=== PATIENT | female | born 1955 | race Caucasian/White ===

== ENCOUNTER → 2020-02-28 10:24 | Outpatient (CLI) | payer BC, SELFPAY ==
--- NOTE | ~2020-02-28 | MM_ITS ---
EXAMINATION: MM screening yasmeen BI w oliverio HISTORY: Screening TECHNIQUE: Craniocaudal and mediolateral oblique 3-D tomosynthesis images were obtained and synthetic 2-D images were generated. CAD analysis was submitted and interpreted. COMPARISON: No prior mammogram is available for comparison at this institution. BREAST PARENCHYMAL COMPOSITION: There are scattered areas of fibroglandular density. FINDINGS: There are bilateral breast asymmetries and calcifications in the subareolar location of the right breast and centered in the outer aspect the left breast. IMPRESSION: 1. Bilateral breast asymmetries with calcifications. 2. Additional mammographic views and possible breast ultrasound are recommended. BI-RADS Category 0: Incomplete: Needs additional imaging evaluation. Reviewed, dictated and finalized at location A. IMPRESSION: 1. Bilateral breast asymmetries with calcifications. 2. Additional mammographic views and possible breast ultrasound are recommended . BI-RADS Category 0: Incomplete: Needs additional imaging evaluation.
== END ==
PROVIDERS: PCP Family Medicine; Visit Provider Family Medicine
DX: Z12.31 Encounter for screening mammogram for malignant neoplasm of breast (principal)
CPT/HCPCS: 77063; 77067

== ENCOUNTER 2020-03-01 13:02 | Emergency (ER) | payer BC, SELFPAY ==
[2020-03-01 13:02] VITALS: BP 141/85; PULSE 70; RESP 16; TEMP 37.2; O2SAT 98
[2020-03-01] MEDS: TETANUS,DIPHTHERIA,AC PERTUSSIS ADULT (0.5 ML) BOOSTRIX IM (13:24)
--- NOTE | 2020-03-01 13:38 | ED.WOUNDLAC ---
HPI - Wound/Laceration General Chief Complaint: Wound/Laceration Stated Complaint: Laceration on finger Time Seen by Provider: 03/01/20 13:17 Source: patient and RN notes reviewed Mode of arrival: ambulatory Limitations: no limitations History of Present Illness HPI narrative: Patient presents today with a laceration to her right third finger. She sustained 30 minutes prior to arrival while using a mandolin slicer at home. She was not wearing a protective glove or using the guard. Reports minimal pain. Denies numbness or tingling in the finger. States she cannot get it to stop bleeding. Unsure of the date of her last tetanus vaccine. Related Data Home Medications Medication Instructions Recorded Confirmed levothyroxine [Synthroid] 75 mcg PO DAILY 03/01/20 03/01/20 lisinopril [Zestril] 10 mg PO DAILY 03/01/20 03/01/20 omeprazole [Prilosec] 10 mg PO DAILY 03/01/20 03/01/20 Allergies Allergy/AdvReac Type Severity Reaction Status Date / Time No Known Allergies Allergy Verified 03/01/20 13:18 Review of Systems Review of Systems: Narrative: CONSTITUTIONAL: Denies body aches, fever, chills, or sweats. EYES: Denies visual changes, redness, or discharge. ENT: Denies rhinorrhea, congestion, sore throat, or otalgia. CARDIOVASCULAR: Denies chest pain, palpitations, or edema. RESPIRATORY: Denies cough or dyspnea. GASTROINTESTINAL: Denies abdominal pain, nausea, vomiting, or diarrhea. GENITOURINARY: Denies dysuria or hematuria. SKIN: Denies rash, itching. + Finger laceration MUSCULOSKELETAL: Denies back pain, joint pain, or myalgia. NEUROLOGIC: Denies headache, numbness, tingling, or weakness. PSYCH: Denies depression or anxiety. [facility] Past Medical History Medical History Essential (primary) hypertension GERD (gastroesophageal reflux disease) Hypothyroidism Osteoarthritis Scoliosis Surgical History Surgical History Status post trigger finger release Tubal ligation status Family History Family History Father Family history of lung cancer, Onset Age: 58 Mother Family history of congestive heart failure, Onset Age: 76 Other Family history of cardiovascular disease No family history of hypertension No family history of malignant neoplasm Social History Social History Social History: The patient is and lives with her in [place]. She designates her , Jovani, as her surrogate decision maker and she wishes to be a full code. She denies alcohol, tobacco, and drug use. She is retired. Smoking status: Never smoker Alcohol intake: never Substance use: never Gender identity (if verbalized by the patient): Female Spiritual care concerns: No Agree to blood products: Yes Exam Narrative: Exam Narrative: GENERAL: Well-appearing, well-nourished, and in no acute distress. HEAD: Normocephalic, atraumatic. EYES: EOMI. No redness or drainage. Conjunctivae normal. ENT: Mucous membranes pink and moist. NECK: Normal AROM. CHEST: No respiratory distress. EXTREMITIES: Normal range of motion. No edema. SKIN: Warm, dry, no rash. Capillary refill normal. Normal skin turgor. 1.5 x 0.5 partial-thickness skin avulsion from the dorsum of the right third DIP. Mild active bleeding. Distal sensation intact. Capillary refill normal. Full range of motion. NEURO: No focal deficits. Alert and oriented x3. Gait steady. PSYCH: Normal affect. No signs of depression or anxiety. Course Vital Signs Vital signs: Vital Signs Temperature 98.9 F 03/01/20 13:02 Pulse Rate 70 03/01/20 13:02 Respiratory Rate 16 03/01/20 13:02 Blood Pressure 141/85 H 03/01/20 13:02 Pulse Oximetry 98 03/01/20 13:02 Temperatu
== END 2020-03-01 13:47 | disposition home or self-care (01) ==
PROVIDERS: Emergency Provider Nurse Practitioner; PCP Family Medicine
DX: S61.202A Unspecified open wound of right middle finger without damage to nail, initial encounter (principal); W27.8XXA Contact with other nonpowered hand tool, initial encounter; Z23 Encounter for immunization; I10 Essential (primary) hypertension; K21.9 Gastro-esophageal reflux disease without esophagitis; E03.9 Hypothyroidism, unspecified; M19.90 Unspecified osteoarthritis, unspecified site
CPT/HCPCS: 90471; 90715; 99212; G0463

== ENCOUNTER 2020-04-08 06:57 | Outpatient (NON) | payer BC, SELFPAY ==
[2020-04-08 23:36] LABS: SARS-CoV-2 RNA PCR Positive
== END 2020-04-08 06:58 ==
LOC: ANHCOVIDDT 06:57
PROVIDERS: PCP Family Medicine; Visit Provider Physician Assistant
DX: U07.1 COVID-19 (principal)
CPT/HCPCS: 87635; C9803; U0003

== ENCOUNTER 2021-02-23 11:29 | Outpatient (CLI) | payer MEDICARE, SELFPAY ==
--- NOTE | ~2021-02-23 | XR_ITS ---
EXAMINATION: XR knee RT 3V DATE: 02/23/2021 11:53 INDICATION: Right knee pain. TECHNIQUE: 3 views of right knee were obtained. COMPARISON: None. FINDINGS: There is lateral subluxation of patella. No fracture. There is mild osteoarthritis of media l and lateral compartments and moderate osteoarthritis of patellofemoral compartment. No knee joint e ffusion. There is a 3 mm loose body in the intercondylar notch. IMPRESSION: 1. Moderate right knee osteoarthritis. 2. Right knee joint loose body. Reviewed, dictated and finalized at location A.
--- NOTE | ~2021-02-23 | XR_ITS ---
EXAMINATION: XR hip RT min 2V DATE: 02/23/2021 11:53 INDICATION: Right hip pain. TECHNIQUE: 2 views of right hip were obtained. COMPARISON: Pelvis radiograph 05/31/2019 FINDINGS: Bone alignment is normal. No fracture. Right hip joint space is normal. IMPRESSION: 1. Normal right hip. Reviewed, dictated and finalized at location A. IMPRESSION: 1. Normal right hip.
== END 2021-02-23 11:30 | disposition home or self-care (01) ==
LOC: ANHIMG 11:35
PROVIDERS: PCP Family Medicine; Visit Provider Family Medicine
DX: M25.559 Pain in unspecified hip (principal); M25.569 Pain in unspecified knee; M17.11 Unilateral primary osteoarthritis, right knee; M23.41 Loose body in knee, right knee
CPT/HCPCS: 73502; 73562

== ENCOUNTER 2021-04-03 15:09 | Outpatient (CLI) | payer MEDICARE, SELFPAY ==
--- NOTE | ~2021-04-03 | MM_ITS ---
EXAMINATION: MM screening yasmeen BI w oliverio HISTORY: Screening mammogram TECHNIQUE: Craniocaudal and mediolateral oblique 3-D tomosynthesis images were obtained and synthetic 2-D images were generated. CAD analysis was submitted and interpreted. COMPARISON: 02/28/2020, 06/02/2018 BREAST PARENCHYMAL COMPOSITION: There are scattered areas of fibroglandular density. FINDINGS: There is an unchanged asymmetry in the middle third outer left breast on the craniocaudal v iew. There is no evidence of suspicious mass, calcification, or architectural distortion to suggest m alignancy in either breast. There has been no suspicious interval change. IMPRESSION: 1. No mammographic evidence of malignancy. 2. Recommend routine screening mammography in one year. BI-RADS Category 2: Benign finding(s). Reviewed, dictated and finalized at location A. 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
== END 2021-04-03 15:10 | disposition home or self-care (01) ==
LOC: ANHIMG 15:11
PROVIDERS: PCP Family Medicine; Visit Provider Family Medicine
DX: Z12.31 Encounter for screening mammogram for malignant neoplasm of breast (principal)
CPT/HCPCS: 77063; 77067

== ENCOUNTER → 2021-06-12 14:30 | Outpatient (CLI) | payer OTHER, SELFPAY ==
--- NOTE | ~2021-06-12 | XR_ITS ---
XR shoulder RT min 2V 06/12/2021 14:53 INDICATION: Right shoulder pain PROCEDURE: 4 views of the right shoulder COMPARISON: No prior studies for comparison. FINDINGS: Fracture, dislocation or subluxation is not identified. Mild osteoarthritis of the acromioc lavicular joint. The soft tissues appear within normal limits. No foreign bodies are identified. IMPRESSION: 1: Mild osteoarthritis of the right acromioclavicular joint. Reviewed, dictated and finalized at location B. 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
== END ==
PROVIDERS: PCP Family Medicine; Visit Provider Family Medicine
DX: M19.011 Primary osteoarthritis, right shoulder (principal)
CPT/HCPCS: 73030

== ENCOUNTER 2022-01-30 07:56 | Outpatient (CLI) | payer OTHER, SELFPAY ==
--- NOTE | ~2022-01-30 | DEXA_ITS ---
Bone Density Report Name: CHANTAL MARTIN Age: 66 Sex: Female Ethnicity: White Date of : 1955 Indication: postmenopausal; screening for osteoporosis; height loss; Referring Provider: SHARON CTAES Study: Bone densitometry was performed. Exam Date: January 30, 2022 Accession number: [id number] Bone Density: Region BMD T-score Z-score Classification AP Spine(L1, L4) 0.972 -0.6 1.3 Normal Femoral Neck (Right) 0.820 -0.3 1.3 Normal Total Hip (Right) 0.962 0.2 1.5 Normal World Health Organization criteria for BMD impression classify patients as: Normal (T-score at or above -1.0), Osteopenia (T-score between -1.0 and -2.5), or Osteoporosis (T-score at or below -2.5). 10-year Fracture Risk: FRAX not reported because: All T-scores for Spine Total, Hip Total, Femoral Neck at or above -1.0 Clinical Information Provided by Patient: Patient maximum height was 68 Menopause Age: 52 Drinks caffeinated beverages Onset of menses at age 15 Number of children 2 Impression: The patient has normal bone mass. Discussion: BONE DENSITY IS ABOVE THE MINIMUM DESIRABLE LEVEL AT ALL SKELETAL SITES TESTED. This patient?s bone mineral density is above the minimum desirable level (T-score -1.0 or better) at all sites measured. The patient should follow a healthful lifestyle (good nutrition with adequate calcium and vitamin D, and appropriate weight-bearing exercise). Follow-Up: Consider repeating this study in 5 years or sooner if there is some new clinical indication. Reported by: ANGELIKA on 01/30/2022 8:24:00 AM. Reviewed, dictated and finalized at location Sara LAURENT
== END 2022-01-30 07:57 | disposition home or self-care (01) ==
PROVIDERS: PCP Family Medicine; Visit Provider Family Medicine
DX: Z78.0 Asymptomatic menopausal state (principal)
CPT/HCPCS: 77080

== ENCOUNTER → 2022-05-30 13:23 | Outpatient (CLI) | payer OTHER, SELFPAY ==
--- NOTE | ~2022-05-30 | MM_ITS ---
EXAMINATION: MM screening yamseen BI w oliverio HISTORY: Screening TECHNIQUE: Craniocaudal and mediolateral oblique 3-D tomosynthesis images were obtained and synthetic 2-D images were generated. CAD analysis was submitted and interpreted. COMPARISON: Comparison to multiple prior studies sequentially, with oldest reviewed study dated 05/2014. BREAST PARENCHYMAL COMPOSITION: There are scattered areas of fibroglandular density. FINDINGS: There are developing asymmetries in the periareolar location of the right breast. The left breast is stable without evidence for malignancy. IMPRESSION: 1. Developing right breast asymmetries. 2. Additional mammographic views and possible breast ultrasound are recommended. BI-RADS Category 0: Incomplete: Needs additional imaging evaluation. Reviewed, dictated and finalized at location A. CATCHER IMPRESSION: 1. Developing right breast asymmetries. 2. Additional mammographic views and possible breast ultrasound are recommended . BI-RADS Category 0: Incomplete: Needs additional imaging evaluation.
== END ==
PROVIDERS: PCP Family Medicine; Visit Provider Family Medicine
DX: Z12.31 Encounter for screening mammogram for malignant neoplasm of breast (principal); N64.89 Other specified disorders of breast
CPT/HCPCS: 77063; 77067

== ENCOUNTER → 2022-06-19 11:26 | Outpatient (CLI) | payer OTHER, SELFPAY ==
--- NOTE | ~2022-06-19 | MMUS_ITS ---
EXAMINATION: MM diagnostic yasmeen RT w oliverio, US breast RT limited HISTORY: Follow-up right breast asymmetries TECHNIQUE: Additional 3-D tomosynthesis images of the right breast were performed and synthetic 2-D i mages were generated. CAD analysis was submitted and interpreted. High resolution Limited right breas t ultrasound was performed. COMPARISON: Comparison to multiple prior studies sequentially, with oldest reviewed study dated 02/16. BREAST PARENCHYMAL COMPOSITION: Breast composed of scattered areas of fibroglandular density FINDINGS: MAMMOGRAPHIC FINDINGS: Focal asymmetry in the lower inner quadrant of the right breast anteriorly is minimally increased in prominence compared with prior study. No suspicious calcifications or architectural distortion. ULTRASOUND: Limited right breast ultrasound: Normal heterogeneous echotexture in the periareolar location. No dis crete mass identified. IMPRESSION: 1. Probable benign asymmetry of the right breast without sonographic correlate. 2. Recommend 6 month follow-up diagnostic right mammogram BI-RADS category 3, probably benign findings. Reviewed, dictated and finalized at location A. 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 Probable benign asymmetry of the right breast without sonographic correlate. 2. Recommend 6 month follow-up diagnostic right mammogram BI-RADS category 3, probably benign findings.
== END ==
PROVIDERS: PCP Nurse Practitioner; Visit Provider Nurse Practitioner
DX: R92.8 Other abnormal and inconclusive findings on diagnostic imaging of breast (principal)
CPT/HCPCS: 76642; 77061; 77065; G0279

== ENCOUNTER 2022-07-24 07:31 | Outpatient (CLI) | payer OTHER, SELFPAY ==
--- NOTE | 2022-07-24 07:40 | ECHO_ITS ---
Patient Info Name: Dee Thomas Age: 67 years : 1955 Gender: Female Ht: 67 in Wt: 185 lbs BSA: 2.01 m2 HR: 56 bpm BP: 120 / 79 mmHg Technical Quality: Good Exam Date: 07/24/2022 8:02 AM Exam Location: [facility] Pulmonary Patient Status: Outpatient Admit Date: 07/24/2022 Staff Ordering Physician: William Moura DO Machine Operator Assistant: Juma Simmons RDCS, RT Attending Provider: William Moura DO Referring Physician: Martell PARKER; Exam Type: CA echo doppler color flow Study Info Indications R06.00 - Dyspnea, unspecified Complete two-dimensional, color flow and Doppler transthoracic echocardiogram is performed. Strain analysis performed. Summary 1. Complete two-dimensional, color flow and Doppler transthoracic echocardiogram is performed. 2. Left ventricular chamber dimension is mildly enlarged. 3. Left ventricular systolic function is normal, estimated at 60-65%. 4. The left ventricular diastolic function is normal. 5. E/e' 7 is not elevated. 6. Global longitudinal strain is normal at -22.9%. 7. There is mild aortic valve sclerosis. Left Ventricle E/e' 7 is not elevated. Global longitudinal strain is normal at -22.9%. Left ventricular chamber dimension is mildly enlarged. Left ventricular systolic function is normal, estimated at 60-65%. The left ventricular diastolic function is normal. Right Ventricle Right ventricular systolic function is normal and with normal TAPSE 2.4 cm. Right ventricular chamber dimension is normal. Left Atria Left atrial chamber dimension is normal. Right Atria Right atrial chamber dimension is normal. Aortic Valve The aortic valve is trileaflet. There is mild aortic valve sclerosis. There is no aortic valve stenosis. There is no aortic valve regurgitation. Pulmonic Valve There is no pulmonic regurgitation. Mitral Valve There is no mitral valve stenosis. There is no mitral valve regurgitation. Tricuspid Valve There is no tricuspid valve regurgitation. Pericardium/Pleural There is no pericardial effusion. Inferior Vena Cava Normal inferior vena cava with >50% collapse upon inspiration consistent with normal right atrial pressure, 5 mmHg. Aorta The aortic root size at the sinus of Valsalva is normal. Left Ventricular Outflow Tract Name Value Normal LVOT 2D LVOT Diameter 2.1 cm LVOT Doppler LVOT Peak Gradient 2 mmHg LVOT Mean Gradient 1 mmHg LVOT VTI 20 cm LVOT VTI/AV VTI Ratio 0.7 LVOT Stroke Volume 70 ml LVOT CO 4.0 l/min LVOT CI 2.0 l/min/m2 Mitral Valve Name Value Normal MV Doppler MV [place] 282 cm/s2 MV PHT
--- NOTE | 2022-07-24 07:45 | EST_ITS ---
Patient Info Name: Dee Thomas Age: 67 years : 1955 Gender: Female Ht: 67 in Wt: 187 lbs BSA: 2.03 m2 HR: 67 bpm BP: 140 / 72 mmHg Heart Rhythm: Sinus Arrhythmia Exam Date: 07/24/2022 8:42 AM Exam Location: [facility] Stress Patient Status: Outpatient Admit Date: 07/24/2022 Staff Ordering Physician: William Moura DO Attending Provider: William Moura DO Exercise Technologist: Jane Naylor CT Exercise Physician: William Moura DO Exam Type: CA stress test treadmill Study Info Indications R06.09 - Other forms of dyspnea A treadmill exercise stress test was performed. Summary 1. 1. Negative Alexis exercise stress test for ischemic ST changes by ECG criteria. 2. 2. Reduced functional capacity, achieving 7 METs of workload. 3. 3. Baseline hypertension. 4. 4. Appropriate HR response to exercise. 5. 5. Appropriate HR recovery at 1 minute post exercise. 6. 6. No imaging with stress testing. 7. 7. Patient informed of the above results. Protocol: Alexis Stress ECG Details Stage: REST Duration (min): 1 min : 2 sec Speed (mph): 0.0 Grade (%): 0 HR (bpm): 58 SBP (mmHg): 149 DBP (mmHg): 72 METS: --- Stage: REST Duration (min): 13 min : 38 sec Speed (mph): 0.0 Grade (%): 0 HR (bpm): 63 SBP (mmHg): 149 DBP (mmHg): 72 METS: --- Stage: STAGE 1 Duration (min): 1 min : 0 sec Speed (mph): 1.7 Grade (%): 10 HR (bpm): 100 SBP (mmHg): 149 DBP (mmHg): 72 METS: --- Stage: STAGE 1 Duration (min): 2 min : 0 sec Speed (mph): 1.7 Grade (%): 10 HR (bpm): 113 SBP (mmHg): 149 DBP (mmHg): 72 METS: --- Stage: STAGE 1 Duration (min): 3 min : 0 sec Speed (mph): 1.7 Grade (%): 10 HR (bpm): 123 SBP (mmHg): 181 DBP (mmHg): 83 METS: --- Stage: STAGE 2 Duration (min): 1 min : 0 sec Speed (mph): 2.5 Grade (%): 12 HR (bpm): 135 SBP (mmHg): 181 DBP (mmHg): 83 METS: --- Stage: STAGE 2 Duration (min): 2 min : 0 sec Speed (mph): 2.5 Grade (%): 12 HR (bpm): 142 SBP (mmHg): 169 DBP (mmHg): 83 METS: --- Stage: STAGE 2 Duration (min): 2 min : 0 sec Speed (mph): 2.5 Grade (%): 12 HR (bpm): 142 SBP (mmHg): 169 DBP (mmHg): 83 METS: --- Stage: RECOVERY Duration (min): 0 min : 59 sec Speed (mph): 0.0 Grade (%): 0 HR (bpm): 111 SBP (mmHg): 169 DBP (mmHg): 83 METS: --- Stage: RECOVERY Duration (min): 1 min : 59 sec Speed (mph): 0.0 Grade (%): 0 HR (bpm): 87 SBP (mmHg): 169 DBP (mmHg): 83 METS: --- Stage: RECOVERY Duration (min): 2 min : 38 sec Speed (mph): 0.0 Grade (%): 0 HR (bpm): 80 SBP (mmHg): 185 DBP (mmHg): 82 METS: --- Rest HR: 63 bpm Peak HR: 142 bpm Rest Sys BP: 149 mmHg Peak Sys BP: 185 mmHg Max Pred HR: 153 bpm % Max Pred HR: 93 % Target HR: 130 bpm Max RPP: 26,270 bpm*mmHg D
== END 2022-07-24 07:32 | disposition home or self-care (01) ==
PROVIDERS: PCP Family Medicine; Visit Provider Internal Medicine Cardiovascular Disease
DX: R06.09 Other forms of dyspnea (principal); R07.9 Chest pain, unspecified
CPT/HCPCS: 93017; 93306

== ENCOUNTER → 2022-11-22 10:42 | Outpatient (CLI) | payer OTHER, SELFPAY ==
--- NOTE | ~2022-11-22 | XR_ITS ---
Left foot Technique: AP, oblique, and lateral views were obtained. Clinical History: Pain Findings: No acute fracture or dislocation is seen. Osseous alignment is anatomic. There is mild dege nerative change of the second, third, and fourth tarsometatarsal joints. Soft tissues are unremarkabl e. Impression: Mild midfoot degenerative changes, as above. Reviewed, dictated and finalized at location . Impression: Mild midfoot degenerative changes, as above.
== END ==
PROVIDERS: PCP Family Medicine; Visit Provider Family Medicine
DX: M79.672 Pain in left foot (principal)
CPT/HCPCS: 73630

== ENCOUNTER → 2023-01-15 11:40 | Outpatient (CLI) | payer OTHER, SELFPAY ==
--- NOTE | ~2023-01-15 | MMUS_ITS ---
EXAMINATION: MM diagnostic yasmeen RT w oliverio, US breast RT limited HISTORY: Six-month follow-up for probably benign subareolar focal asymmetry of the right breast. TECHNIQUE: Craniocaudal, mediolateral, and mediolateral oblique 3-D tomosynthesis images of the right breast were performed and synthetic 2-D images were generated. CAD analysis was submitted and interp reted. High resolution limited right breast ultrasound was performed. COMPARISON: 06/19/2022, 05/30/2022, 04/03/2021 BREAST PARENCHYMAL COMPOSITION: There are scattered areas of fibroglandular density. FINDINGS: MAMMOGRAPHIC FINDINGS: No suspicious mass, calcification, or architectural distortion are identified to suggest malignancy. There has been no suspicious interval change. ULTRASOUND: There is dense tissue in the subareolar aspect of the right breast without discrete mass identified. IMPRESSION: 1. Dense tissue in the subareolar aspect of the right breast without discrete mass identified. 2. Recommend 6 month follow-up diagnostic mammogram and right breast ultrasound. BI-RADS category 3, probably benign findings. Reviewed, dictated and finalized at location L. IMPRESSION: 1. Dense tissue in the subareolar aspect of the right breast without discrete m ass identified. 2. Recommend 6 month follow-up diagnostic mammogram and right breast ultrasound . BI-RADS category 3, probably benign findings.
== END ==
PROVIDERS: PCP Family Medicine; Visit Provider Nurse Practitioner
DX: R92.8 Other abnormal and inconclusive findings on diagnostic imaging of breast (principal)
CPT/HCPCS: 76642; 77061; 77065; G0279

== ENCOUNTER 2023-09-29 09:20 | Outpatient (CLI) | payer OTHER, SELFPAY ==
--- NOTE | ~2023-09-29 | MM_ITS ---
EXAMINATION: MM diagnostic yasmeen BI w oliverio HISTORY: Six-month follow-up for probable benign subareolar asymmetry of right breast, 12 month scree karena of left breast TECHNIQUE: ML, MLO and CC 3-D tomosynthesis images of both breasts were performed and synthetic 2-D i mages were generated. CAD analysis was submitted and interpreted. COMPARISON: 01/15/2023 diagnostic right mammogram and Limited right breast ultrasound 06/19/2022 diagnostic right mammogram and Limited right breast ultrasound 05/30/2022, 04/03/2021, 02/28/2020 bilateral screening mammogram examinations BREAST PARENCHYMAL COMPOSITION: There are scattered areas of fibroglandular density. FINDINGS: No suspicious mass or architectural distortion, malignant calcification, skin thickening or retraction or significant new or developing density is detected. IMPRESSION: 1. No mammographic evidence of malignancy 2. Routine mammographic screening is recommended BI-RADS Category 1: Negative Reviewed, dictated and finalized at location A.
== END 2023-09-29 09:21 ==
LOC: MICIMG 09:21
PROVIDERS: PCP Family Medicine; Visit Provider Nurse Practitioner
DX: R92.8 Other abnormal and inconclusive findings on diagnostic imaging of breast (principal)
CPT/HCPCS: 77062; 77066; G0279

== ENCOUNTER 2023-11-14 10:47 | Outpatient (CLI) | payer OTHER, SELFPAY ==
--- NOTE | ~2023-11-14 | XR_ITS ---
Clinical Indication: Cough PA and lateral views of the chest: Comparison: 05/13/2019 Findings: The lungs are clear, without evidence of focal consolidation or pleural effusion. Cardiome diastinal silhouette is within normal limits. Bones and soft tissues are unremarkable. Impression: Normal chest. Reviewed, dictated and finalized at [facility]. Impression: Normal chest.
== END 2023-11-14 10:48 ==
LOC: GOSHIMG 10:49
PROVIDERS: PCP Family Medicine; Visit Provider Family Medicine
DX: R05.9 Cough, unspecified (principal)
CPT/HCPCS: 71046

== ENCOUNTER 2024-03-17 12:44 | Outpatient (CLI) | payer OTHER, SELFPAY ==
--- NOTE | ~2024-03-17 | MR_ITS ---
EXAMINATION: MR shoulder RT wo con DATE: 03/17/2024 13:29 INDICATION: Right shoulder pain TECHNIQUE: Magnetic resonance imaging (MRI) of the right shoulder was performed without intravenous c ontrast. Sequences included axial PD-weighted FS FSE, coronal oblique PD-weighted FS FSE, coronal obl ique T2-weighted FS FSE, sagittal PD-weighted FS FSE, and sagittal T1-weighted SE. COMPARISON: None. FINDINGS: Coracoacromial arch: The acromion undersurface is minimally curved in morphology (type I-II). The coracoacromial ligament is normal. Mild acromioclavicular osteoarthritis. Rotator cuff: Moderate supraspinatus tendinopathy with small full-thickness tear along the superior facet footplate which measures 4 mm AP and 7 mm medial collateral. There is partial thickness articular sided tear e xtending a few millimeter more posteriorly along the superior facet footplate involving up to 50% of the tendon thickness. The articular sided tear margin is retracted up to 2 cm medially. Mild infraspi natus tendinopathy without discrete tear. The teres minor tendon is normal. The moderate subscapulari s tendinopathy without discrete tear. Normal rotator cuff muscle bulk and signal. Biceps tendon, glenoid labrum and glenohumeral cartilage: There is mild tendinopathy with longitudinal split tear tearing along the extra articular portion of the tendon. Small partial-thickness tear at the chondral labral junction of the head o'clock-9:00 pos ition of the posterior glenoid labrum. Additional small tear at the 10:30 position of the posterior s uperior glenoid labrum. Glenohumeral cartilage is relatively preserved. Fluid: Small glenohumeral joint effusion hemodynamic primarily in the axillary and deep subscapular recesses . Small amount of fluid extends into the long head biceps tendon sheath. There is also a small to mod erate amount of fluid in the subacromial/subdeltoid bursa likely representing decompressed joint flui d extending through the full-thickness supraspinatus tendon tear. No loose osteochondral bodies. Bones: Normal marrow signal with no edema, fracture or pathologic marrow replacing process. Mild cystic and hypertrophic change along the lesser tuberosity likely related to chronic subscapular tendon disease. IMPRESSION: 1. Moderate supraspinatus tendinopathy with small full-thickness tear along the superior facet footpl ate. 2. Moderate subscapularis and mild infraspinatus tendinopathy without discrete tears. 3. Mild tendinopathy and longitudinal split tearing of the intra-articular long head biceps tendon. 4. Small tears at the posterior superior and posterior glenoid labrum. 5. Small right glenohumeral effusion extending into the recess of the joint space, the long head nisa ps tendon sheath and through the full-thickness rotator cuff tear/subdeltoid bursa. Reviewed, dictated and finalized at location A. IMPRESSION: 1. Moderate supraspinatus tendinopathy with small full-thickness tear along the superior facet footplate. 2. Moderate subscapularis and mild infraspinatus tendinopathy without discrete tears. 3. Mild tendinopathy and longitudinal split tearing of the intra-articular long head biceps tendon. 4. Small tears at the posterior superior and posterior glenoid labrum. 5. Small right glenohumeral effusion extending into the recess of the joint spa ce, the long head biceps tendon sheath and through the full-thickness rotator c uff tear/subdeltoid bursa.
== END 2024-03-17 12:45 | disposition home or self-care (01) ==
LOC: MICIMG 12:44
PROVIDERS: PCP Family Medicine; Visit Provider Orthopaedic Surgery
DX: M25.411 Effusion, right shoulder (principal); S43.491A Other sprain of right shoulder joint, initial encounter; X58.XXXA Exposure to other specified factors, initial encounter
CPT/HCPCS: 73221

== ENCOUNTER 2024-09-14 12:46 | Outpatient (CLI) | payer OTHER, SELFPAY ==
--- NOTE | ~2024-09-14 | US_ITS ---
Pelvic ultrasound. Clinical History: Pelvic pain Technique: Realtime transabdominal and transvaginal scanning of the pelvis was performed. Color flow Doppler and Doppler spectral analysis were performed. Findings: The uterus is anteverted. The endometrial stripe has a thickness of 6 mm, and appears some what heterogeneous. Small amount of fluid present in the endometrial cavity. No focal mass is identif ied. Neither ovary seen. No adnexal mass seen. There is no evidence of free fluid in the cul de sac. Impression: Borderline thickened, heterogeneous endometrial stripe, with minimal fluid in the endometrial cavity. Consider endometrial hyperplasia versus possibly early endometrial neoplasm. Reviewed, dictated and finalized at location M. Impression: Borderline thickened, heterogeneous endometrial stripe, with minimal fluid in t he endometrial cavity. Consider endometrial hyperplasia versus possibly early e ndometrial neoplasm.
== END 2024-09-14 12:47 | disposition home or self-care (01) ==
LOC: MICIMG 12:46
PROVIDERS: PCP Obstetrics & Gynecology; Visit Provider Obstetrics & Gynecology
DX: R10.2 Pelvic and perineal pain (principal)
CPT/HCPCS: 76830; 76856

== ENCOUNTER 2024-12-02 14:07 | Outpatient (CLI) | payer OTHER, SELFPAY ==
--- OUTSIDE RECORDS SUMMARY | 2024-12-02 14:23 | XMS_ITS | Clinical Summary ---
Author Organization [facility] [address] Address [address] [place] [address] Care Team Providers Care Web Analyst Name Role Phone Jonathon Gonzales MD Primary Care Provider [phone] Allergies No known active allergies Social History Tobacco Use Types Packs/Day Years Used Date Smoking Tobacco: Never Assessed Personal Safety Answer Date Recorded Getting School Help Needed Not on file 08/02 Comments Unknown Sex and Gender Information Value Date Recorded Sex Assigned at Not on file Legal Sex Female 7:26 PM DIRECTOR SPECIALTY Gender Identity Not on file Sexual Orientation Not on file Plan of Treatment Not on file Insurance [facility] Care Teams Web Analyst Relationship Specialty Start Date End Date Jonathon Gonzales MD [address] [place] [address] PCP - General Family Medicine 05/24/19
--- OUTSIDE RECORDS SUMMARY | 2024-12-02 14:24 | XMS_ITS | Referral Summary ---
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
--- NOTE | 2024-12-02 14:31 | ECG_ITS ---
Test Date: 2024-12-02 14:53:52 Measurements Intervals [place] Rate: 62 P: 32 MO: 140 QRS: -23 QRSD: 108 T: 30 QT: 413 QTc: 420 Interpretive Statements SINUS RHYTHM LOW QRS VOLTAGE IN PRECORDIAL LEADS [QRS DEFLECTION < 1.0 mV IN CHEST LEADS] POSSIBLE ANTERIOR MYOCARDIAL INFARCTION [30 ms Q WAVE IN V3/V4, OR R < 0.2 mV IN V4], OF INDETERMINATE AGE WARNING: DATA QUALITY MAY AFFECT INTERPRETATION No previous ECG available for comparison Electronically Signed On 12-02-2024 15:03:12 CDT by Solitario Samuel M.D.
[2024-12-02 15:02] LABS: Hematocrit 36.5 % (37.0-47.0); Hemoglobin 11.9 g/dL (12.0-15.0); Mean Corpuscular HGB Conc 32.6 g/dl (32-36); Mean Corpuscular Hemoglobin 29.0 pg (26-34); Mean Corpuscular Volume 88.8 fl (80-100); Platelet Count Result 313 k/mm3 (150-375); Red Blood Count 4.11 M/mm3 (4.2-5.4); White Blood Count 7.7 K/mm3 (4.5-10.0)
[2024-12-02 15:17] LABS: Alanine Aminotransferase 18 U/L (6-35); Albumin Level 4.5 g/dL (3.5-5.1); Alkaline Phosphatase 63 U/L (38-126); Anion Gap 9 mmol/L (4-12); Aspartate Amino Transferase 29 U/L (14-36); Bilirubin,Total 0.3 mg/dL (0.2-1.3); Blood Urea Nitrogen 14 mg/dL (7-17); Calcium 9.7 mg/dL (8.4-10.2); Carbon Dioxide 27 mmol/L (22-30); Chloride 97 mmol/L (98-107); Estimated Glomerular Filt Rate 51; Glucose 112 mg/dL (65-110); Potassium 4.2 mmol/L (3.4-5.0); Sodium 133 mmol/L (137-145); Total Protein 7.5 g/dL (6.3-8.2)
[2024-12-02 15:19] LABS: INR 1.0; Prothrombin Time 12.9 Seconds (11.1-14.7)
[2024-12-02 15:20] LABS: Partial Thromboplastin Time 27.0 Seconds (22.3-36.8)
== END 2024-12-02 14:08 | disposition home or self-care (01) ==
LOC: ANHSURGERY 14:10
PROVIDERS: PCP Family Medicine; Visit Provider Urology
DX: R94.31 Abnormal electrocardiogram [ECG] [EKG] (principal); N81.2 Incomplete uterovaginal prolapse; E78.5 Hyperlipidemia, unspecified; I10 Essential (primary) hypertension
CPT/HCPCS: 36415; 80053; 85027; 85610; 85730; 86850; 86900; 86901; 93005

== ENCOUNTER 2024-12-13 01:25 | Day surgery (SDC) | payer OTHER, SELFPAY ==
[2024-12-02 14:22] VITALS: BP 135/68; PULSE 65; RESP 14; TEMP 37.1; O2SAT 99; BMI 29.5
--- NOTE | 2024-12-02 14:38 | PC.NURSE ---
Report to the Outpatient Waiting Room, entrance under the green pavilion located off [facility], at time __0600am on date ___12/13/24____. Planned Procedure Time: __0730am .? Time changes happen often and if your time is changed the preop area will call you the afternoon before. - You and your visitor will be asked to self-screen and do not enter if you have any COVID symptoms. Please call surgeon if you need to reschedule. - A mask is optional within the hospital at this time. Patients may have clear liquids (water, carbonated beverages, clear teas, apple juice) until 3 hours prior to surgery with a maximum of 20 ounces. - No food from midnight until time of surgery and no smoking, or chewing tobacco (or any form of nicotine). No chewing gum, candy or mints. (0430am) Take only the following medications with a SIP of water on the morning of surgery: ___Levothyroxine and Tylenol if needed DO NOT STOP ANY OF YOUR OTHER PRESCRIPTION MEDICATIONS PRIOR TO SURGERY EXCEPT THE FOLLOWING Hold all vitamins and supplements for 7 days per Gabriel Medications to discontinue per physician NO NSAIDS, ASPIRIN, Meloxicam for [address] Rios Date to take last dose 12/04/24 Please no make-up, nail yi, hairspray, perfume, deodorant, or body powder the day of surgery.? No jewelry (including any body piercings) or valuables the day of surgery, leave them at home.? Please take a shower or bath the night before, or the morning of, surgery with an antibacterial soap. (GOLD DIAL)? Wear comfortable, loose fitting clothing.? Bring overnight toiletries, robe, cell phone.,leading firefighter, tennis shoes - Jewelry must be removed prior to entering the operating room.? Rings and piercings that are not removed may be cut off. - The hospital will not accept responsibility for valuables.? - Please leave all valuables, including medications, at home the day of surgery. If you are going home after surgery, a licensed transportation driver must drive you home.? - NO public transportation without another adult if you receive anesthesia. - We recommend that an adult stay with you for 24 hours following discharge. - We also recommend that you do not drive, make important decision, drink alcoholic beverages, or take any drugs that were not prescribed by your health care provider for at least 24 hours after your discharge time. Follow any additional instructions given to you from your surgeon. Telephone instructions given to Patient and asked if any additional questions and then verbalized understanding. Patient advised to call surgeon office or pre surgery nurse liaison [phone] if any additional questions.
--- NOTE | 2024-12-12 17:42 | P.HP_ITS ---
H&P: HPI History of Present Illness Date/Time: 12/12/24 17:42 Chief Complaint: POP/RAYNA Narrative: Uterine prolapse +RAYNA Review of Systems Review of Systems: All systems reviewed & are unremarkable except as noted in HPI and below [facility] Past Medical History Medical History History of endometrial biopsy benign Arthritis of left hip hip replacement 2019 Scoliosis GERD (gastroesophageal reflux disease) Osteoarthritis Hypothyroidism Essential (primary) hypertension Surgical History Surgical History History of left hip replacement Status post trigger finger release Tubal ligation status Family History Family History Father Family history of lung cancer, Onset Age: 58 Mother Family history of congestive heart failure, Onset Age: 76 Hypertension Heart disease Cerebrovascular accident Grandparent Thyroid disorder Other Family history of cardiovascular disease No family history of hypertension Social History Social History Social History: The patient is and lives with her in [place]. She designates her , Jovani, as her surrogate decision maker and she wishes to be a full code. She denies alcohol, tobacco, and drug use. She is retired. Smoking status: Never smoker Second hand tobacco smoke exposure: Yes Alcohol intake: never Substance use: never Substance use type: does not use Current Housing: Decline to Answer Concerned About Future Housing: Decline to Answer Difficulty Paying Gas/Electric Bills: Decline to Answer Difficulty Paying for Meds: Decline to Answer Currently Unemployed: Decline to Answer Education: Decline to Answer Difficulty w/ Childcare or Family Care: Decline to Answer Living arrangements: with family Additional living arrangements comments: Occupation/Education: retired Gender identity (if verbalized by the patient): Female Sexual Orientation (if Verbalized by the Patient): Straight or Heterosexual Spiritual care concerns: No Agree to blood products: Yes Meds Home Medications and Allergies Home Medications ?Medication ?Instructions ?Recorded ?Confirmed ?Type levothyroxine 75 mcg tablet See Rx Instructions .Route 06/21/24 12/02/24 Rx .COMPLEX #90 tabs lisinopril 10 See Rx Instructions .Route 06/21/24 12/02/24 Rx mg-hydrochlorothiazide 12.5 mg .COMPLEX #90 tabs tablet meloxicam 15 mg tablet 15 mg PO DAILY #90 tabs 09/27/24 12/02/24 Rx simvastatin 10 mg tablet See Rx Instructions .Route 09/27/24 12/02/24 Rx .COMPLEX #90 tabs omeprazole 10 mg capsule,delayed 10 mg PO DAILY #90 caps 10/18/24 12/02/24 Rx release glucosamine-chondroitin 250 mg-200 2 tablet PO ONCE pain 12/02/24 12/02/24 History mg tablet magnesium 250 mg tablet 250 mg PO DAILY 12/02/24 12/02/24 History Allergies Allergy/AdvReac Type Severity Reaction Status Date / Time No Known Allergies Allergy Verified 12/02/24 14:18 Exam Narrative: + urethral mobility cystocele +3 [place] 0 Assessment and Plan Assessment and plan (1) Cystocele with incomplete uterovaginal prolapse: Code(s): N81.2 - Incomplete uterovaginal prolapse Status: Acute (2) RAYNA (stress urinary incontinence, female): Code(s): N39.3 - Stress incontinence (female) (male) Status: Acute Plan Robotic Sacral Colpopexy, Urethral sling
--- NOTE | 2024-12-12 20:37 | P.HP_ITS ---
H&P: HPI History of Present Illness Date/Time: 12/12/24 20:37 Chief Complaint: prolapse Narrative: Sandee is a 69yo postmenopausal P2012 who presents for surgical management of possible prolapse. She reports that it has been present for over a year. She reports that it has worsened; feeling more bulge symptoms. She does have some bladder issues; feels urgency, incomplete emptying sometimes. She does have to push it back in multiple times a day. She denies any vaginal bleeding. She has a h/o tubal ligation. She reports a normal h/o pap smears. She had a COMMERCIAL REPRESENTATIVE US showing mildly thickened endometrium with fluid; EMB was performed and negative for hyperplasia or malignancy. Review of Systems Constitutional: Constitutional: Denies chills, Denies fever(s) and Denies headache(s) Eyes: Eyes: Denies change in vision ENT: Denies dizziness and Denies headache(s) Cardiovascular: Cardiovascular: Denies chest pain and Denies dyspnea Respiratory: Respiratory: Denies cough and Denies dyspnea Gastrointestinal: Gastrointestinal: Denies abdominal pain and Denies change in stool character Genitourinary: Genitourinary: Denies abnormal vaginal bleeding, Denies pelvic pain, Reports prolapse symptoms, Denies vaginal discharge, Denies vaginal odor and Denies vaginal pruritus Neurologic: Denies dizziness and Denies headache(s) Psychiatric: Psychiatric: Denies anxiety and Denies depression [facility] Past Medical History Medical History History of endometrial biopsy benign Arthritis of left hip hip replacement 2019 Scoliosis GERD (gastroesophageal reflux disease) Osteoarthritis Hypothyroidism Essential (primary) hypertension Surgical History Surgical History History of left hip replacement Status post trigger finger release Tubal ligation status Family History Family History Father Family history of lung cancer, Onset Age: 58 Mother Family history of congestive heart failure, Onset Age: 76 Hypertension Heart disease Cerebrovascular accident Grandparent Thyroid disorder Other Family history of cardiovascular disease No family history of hypertension Social History Social History Social History: The patient is and lives with her in [place]. She designates her , Jovani, as her surrogate decision maker and she wishes to be a full code. She denies alcohol, tobacco, and drug use. She is retired. Smoking status: Never smoker Second hand tobacco smoke exposure: Yes Alcohol intake: never Substance use: never Substance use type: does not use Current Housing: Decline to Answer Concerned About Future Housing: Decline to Answer Difficulty Paying Gas/Electric Bills: Decline to Answer Difficulty Paying for Meds: Decline to Answer Currently Unemployed: Decline to Answer Education: Decline to Answer Difficulty w/ Childcare or Family Care: Decline to Answer Living arrangements: with family Additional living arrangements comments: Occupation/Education: retired Gender identity (if verbalized by the patient): Female Sexual Orientation (if Verbalized by the Patient): Straight or Heterosexual Spiritual care concerns: No Agree to blood products: Yes Meds Home Medications and Allergies Home Medications ?Medication ?Instructions ?Recorded ?Confirmed ?Type levothyroxine 75 mcg tablet See Rx Instructions .Route 06/21/24 12/02/24 Rx .COMPLEX #90 tabs lisinopril 10 See Rx Instructions .Route 06/21/24 12/02/24 Rx mg-hydrochlorothiazide 12.5 mg .COMPLEX #90 tabs tablet meloxicam 15 mg tablet 15 mg PO DAILY #90 tabs 09/27/24 12/02/24 Rx simvastatin 10 mg tablet See Rx Instructions .Route 09/27/24 12/02/24 Rx .COMPLEX #90 tabs omeprazole 10 mg capsule,delayed 10 mg PO DAILY #90 caps 10/18/24 12/02/24 Rx release glucosamine-chondroitin 250 mg-200 2 tablet PO ONCE pain 12/02/24 12/02/24 History mg tablet magnesium 250 mg tablet 250 mg PO DAILY 12/02/24 12/02/24 History Allergies Allergy/AdvReac Type Severity Reaction Status Date / Time No Known Allergies Allergy Verified 12/02/24 14:18 Exam Const: General: cooperative, comfortable, no acute distress and overweight Orientation/consciousness: patient oriented x3 Resp: Effort & Inspection: normal respiratory effort Cardio: Rate: regular rate GI: Inspection: normal to inspection GI Palp: No abdominal tenderness and Yes Soft to palpation : Other: deferred to OR Skin: General skin exam: normal color Neuro: General: patient oriented x3 Extrem: General: normal to inspection Psych: Appearance: grossly normal Affect: normal affect Attitude: cooperative Assessment and Plan Assessment and plan (1) Cystocele with incomplete uterovaginal prolapse: Code(s): N81.2 - Incomplete uterovaginal prolapse Status: Acute Plan - I will perform robotic assisted supracervical hysterectomy with bilateral salpingo-oophorectomy. - Risks and benefits and expected down time discussed in detail - Will be a combined case with Dr. Rios
[2024-12-13] VITALS (12 sets, daily range): BP systolic 105–131; BP diastolic 44–68; PULSE 55–84; RESP 12–18; TEMP 35.8–36.8; O2SAT 95–100; BMI 28.9
--- OUTSIDE RECORDS SUMMARY | 2024-12-13 01:29 | XMS_ITS | Clinical Summary ---
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
--- OUTSIDE RECORDS SUMMARY | 2024-12-13 01:29 | XMS_ITS | Referral Summary ---
Author Organization [facility] [address] Address [address] [place] [address] Care Team Providers Care Care Process Manager Name Role Phone Jonathon Gonzales MD Primary Care Provider [phone] Allergies No known active allergies Social History Tobacco Use Types Packs/Day Years Used Date Smoking Tobacco: Never Assessed Personal Safety Answer Date Recorded Getting School Help Needed Not on file 08/02 Comments Unknown Sex and Gender Information Value Date Recorded Sex Assigned at Not on file Legal Sex Female 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
[2024-12-13] MEDS: LACTATED RINGERS 1,000 ML 30 ML IV CONT ×2 (06:40→10:15)
[2024-12-13] MEDS: ACETAMINOPHEN 500 MG TABLET 1000 MG PO (06:50)
[2024-12-13] MEDS: KETOROLAC 15 MG/ML VIAL (*BKC) IV PUSH ×2 (06:50→09:55)
--- NOTE | 2024-12-13 07:05 | WPDHPUPDATE1 ---
History and Physical Update Update Date/Time: 12/13/24 07:05 History and Physical has been reviewed, including an updated exam of the patient. There are NO changes in the patient's condition. Risks, benefits, and alternatives have been discussed and questions answered. Patient agrees to proceed with robotic assisted supracervical hysterectomy with bilateral salpingo-oophorectomy.
--- NOTE | 2024-12-13 07:15 | WPDHPUPDATE1 ---
History and Physical Update Update Date/Time: 12/13/24 07:15 History and Physical has been reviewed, including an updated exam of the patient. There are NO changes in the patient's condition. Risks, benefits, and alternatives have been discussed and questions answered. Patient agrees to proceed with procedure.
--- NOTE | 2024-12-13 07:22 | P.PNAN_ITS ---
Anes - Initial Pre Proc Eval Procedure: Operation Date: 12/13/24 07:30 Proposed Procedures p Robotic Sacrocolpopexy, Urethral Sling - Jem Rios MD s Robotic Supracervical Hysterectomy with Bilateral Salpingectomy - Keya Og MD Date/Time: 12/13/24 07:22 Surgeon: Jem Rios MD Pre Op Diagnosis: uterine prolapse, stress incont Patient Data Age: 69 Gender: F Height: 1.7 m Weight: 85.6 kg Last Vital Signs Temp 98.7 F 12/02/24 14:22 Pulse 65 12/02/24 14:22 Resp 14 12/02/24 14:22 BP 135/68 12/02/24 14:22 Pulse Ox 99 12/02/24 14:22 O2 Del Method Room Air 12/02/24 14:22 Allergies Allergy/AdvReac Type Severity Reaction Status Date / Time No Known Allergies Allergy Verified 12/13/24 06:13 Home Medications ?Medication ?Instructions ?Recorded ?Confirmed ?Type levothyroxine 75 mcg tablet See Rx Instructions .Route 06/21/24 12/13/24 Rx .COMPLEX #90 tabs lisinopril 10 See Rx Instructions .Route 06/21/24 12/13/24 Rx mg-hydrochlorothiazide 12.5 mg .COMPLEX #90 tabs tablet meloxicam 15 mg tablet 15 mg PO DAILY #90 tabs 09/27/24 12/13/24 Rx simvastatin 10 mg tablet See Rx Instructions .Route 09/27/24 12/13/24 Rx .COMPLEX #90 tabs omeprazole 10 mg capsule,delayed 10 mg PO DAILY #90 caps 10/18/24 12/13/24 Rx release glucosamine-chondroitin 250 mg-200 2 tablet PO ONCE pain 12/02/24 12/13/24 History mg tablet magnesium 250 mg tablet 250 mg PO DAILY 12/02/24 12/13/24 History Patient hx anesthesia problems: none Family hx anesthesia problems: none Results Review: All pre-operative results and documents have been reviewed as part of the pre- operative evaluation. [facility] Past Medical History Medical History History of endometrial biopsy benign Arthritis of left hip hip replacement 2019 Scoliosis GERD (gastroesophageal reflux disease) Osteoarthritis Hypothyroidism Essential (primary) hypertension Surgical History Surgical History History of left hip replacement Status post trigger finger release Tubal ligation status Family History Family History Father Family history of lung cancer, Onset Age: 58 Mother Family history of congestive heart failure, Onset Age: 76 Hypertension Heart disease Cerebrovascular accident Grandparent Thyroid disorder Other Family history of cardiovascular disease No family history of hypertension Social History Social History Social History: The patient is and lives with her in [place]. She designates her , Jovani, as her surrogate decision maker and she wishes to be a full code. She denies alcohol, tobacco, and drug use. She is retired. Smoking status: Never smoker Alcohol intake: never Substance use: never Substance use type: does not use Current Housing: Decline to Answer Concerned About Future Housing: Decline to Answer Difficulty Paying Gas/Electric Bills: Decline to Answer Difficulty Paying for Meds: Decline to Answer Currently Unemployed: Decline to Answer Education: Decline to Answer Difficulty w/ Childcare or Family Care: Decline to Answer Living arrangements: with family Occupation/Education: retired Gender identity (if verbalized by the patient): Female Sexual Orientation (if Verbalized by the Patient): Straight or Heterosexual Spiritual care concerns: No Agree to blood products: Yes Anes - Eval Final PreProcedure Day of Procedure 12/13/24 07:22 Patient weight: normal Heart: regular rate and rhythm Lungs: clear to auscultation Airway: Mallampati scale class II Neurological: alert and oriented Last oral intake: >/= 8 hours ASA classification: III Emergent: no Anesthetic plan: proceed Anesthesia type and monitoring: general ETT and standard monitoring Results Review: All pre-operative results and documents have been reviewed as part of the pre- operative evaluation. Informed Consent: The patient's anesthetic plan and its attendant risks and benefits were di scussed with the patient/family/POA. Questions were solicited and answers provided to the satisfaction of the patient/family/POA.
[2024-12-13] MEDS: ceFAZolin 2 GM in SODIUM CHLORIDE 0.9% IV 50 ML 100 ML IVPB (07:29)
[2024-12-13] MEDS: metroNIDAZOLE 500 MG/ISO 100ML 500 MG/100 ML BAG 100 MG IVPB ×3 (07:29→21:59)
[2024-12-13] MEDS: BUPIVACAINE/EPINEPHRINE 0.5% 30 ML VIAL INFILTRATE (08:03)
--- NOTE | 2024-12-13 08:56 | W.PM.PROC2 ---
Procedure Note - Detailed Date of Procedure 12/13/24 Pre-op Diagnosis uterine prolapse, stress incont Post-op Diagnosis Same Procedure Performed Robotic supracervical hysterectomy with bilateral salpingo-oophorectomy Surgeon Keya Og MD Anesthesia General Findings Normal uterus, normal bilateral ovaries and fallopian tubes. Small amount of thin, filmy adhesions from descending colon to left tube/ovary/pelvic side wall which were taken down. Good hemostasis at end of case. Description of Procedure Sandee was taken to the operating room where she was placed under general anesthesia without issues. She received 2 g Ancef and 500mg Metronidazole. She was then prepped and draped in the usual sterile fashion in the dorsal lithotomy position with her legs in low Markell stirrups, her arms tucked at her side, with a strap over her chest. A time-out was performed with both Dr. Rios and I in the room. Dr. Rios then scrubbed in and placed the 5 laparoscopic ports. The patient was then placed in steep Trendelenburg, with the legs slightly lowered. Dr. Rios then docked the robot and placed the instruments intra-abdominally under direct visualization. I then went to the robotic console. I then started my hysterectomy on the right side. The ureter was easily identified transperitoneally and well out of the surgical field. The IP ligament was identified and serially clamped, coagulated, and transected with good hemostasis. The broad ligament was then sequentially clamped, coagulated, and transected working in the direction of the round ligament. The round ligament was clamped, coagulated, and transected. The broad ligament was then further dissected anteriorly and posteriorly skeletonizing the uterine artery. The bladder flap was then developed on the right side and carried around the left, anteriorly. The uterine artery was then serially clamped and coagulated. Once the vessel was adequately coagulated, it was then transected with good hemostasis. The small adhesions from the pelvic side wall/left tube/ovary to the colon were taken down using the mono-polar scissors without complications. The same procedure was then performed on the left side without complications. All pedicles were found to be hemostatic. The uterus was noted to be devascularized. The bladder flap was verified out of the surgical field and the uterus was transected in half and then the uterus was transected from the cervix. Good hemostasis was noted. The uterus, bilateral fallopian tubes, and ovaries were placed within a bag. All pedicles were once again examined and found to be hemostatic. Dr. Rios then took over the robot and continued his case to repair the prolapse. At the end of the case, my EBL was 10cc. Estimated Blood Loss 10 Pathology Yes (uterus, bilateral fallopian tubes and ovaries) Complications No immediate complications Condition Stable Disposition No change [facility] Billing Surgery - Charge Forward: Surgery Billing
--- NOTE | 2024-12-13 09:13 | S_PTH ---
PATIENT: Dee Thomas LOC: [facility] U#:[id number] AGE/SX: 69/F ROOM: RE12/13/[address]: Jem Rios MD : 1955 BED: DIS: 12/14/2024 SPEC #: [id number] RECD: 12/13/24 10:42 STATUS: JARVIS REQ #: [id number] BERNIE: 12/13/24 09:[address]: Keya Og DEPT: [facility] Surgical RECD BY: Sandhya Garcia ENTERED: 12/13/24 10:42 SP TYPE: Surgical OTHR DR: MD Elisabeth Echols, Tissues: A - Uterus Procedures: Hematoxylin and Eosin Stain Gross and Microscopic Level 5
--- NOTE | 2024-12-13 10:32 | W.PM.PROC2 ---
Procedure Note - Detailed Date of Procedure 12/13/24 Pre-op Diagnosis uterine prolapse, stress incontinence Post-op Diagnosis Same Procedure Performed Robotic assisted laparoscopic sacral colpopexy Urethral sling Cystoscopy Surgeon Jem Rios MD Anesthesia General Indications A woman with uterine prolapse as well as stress incontinence. She desires surgical correction. She is here for the above. She understands risks of bleeding, infection, diskitis, damage to surrounding organs, bowel injury, bowel obstruction, mesh related complications including exposure and extrusion, postoperative voiding dysfunction including incontinence and retention, need for ancillary procedures, dyspareunia, recurrence of prolapse, and other perioperative intraoperative postoperative complications. She agrees to proceed. Findings See below Description of Procedure She was correctly identified. Informed consent obtained. She from the operating room. She was given general anesthesia. She was given appropriate perioperative antibiotics. She was placed a low lithotomy position. Pressure points were padded. A time-out performed. I marked out the skin 3 fingerbreadths cephalad to the umbilicus. I anesthetized the skin. I incised the skin. I dissected down to the fascia. I grasped the fascia with Jeanie clamps. I entered the fascia sharply in a Nye type technique. I placed sutures for later fascial closure. I placed a midline trocar. I examined the abdomen. There is no sign of any injury. Under direct vision I placed 2 additional trocars in the right upper quadrant and 2 additional trocars the left upper quadrant. She was placed in steep Trendelenburg. The robot was docked. Her shop and alteration tailor completed their portion of the procedure. Please see that operative report for details. I then sat at the console. The Sizer in the vagina created plane on the anterior and posterior vaginal wall. I took great care not to injure the vagina, bladder, or rectum. I introduced the mesh into the abdomen. I sewed the anterior leaflet of mesh on the anterior vaginal wall. I sewed the posterior leaflet of mesh on the posterior vaginal wall. This was done with several sutures of 2 0 [place]-Damian. I reflected the colon laterally. I opened the posterior peritoneum over the sacral promontory. I carried this into the cul-de-sac. I freed up the edges for later retroperitonealization. I located the anterior longitudinal ligament the sacrum. I cleaned off all fatty tissues. I then tensioned my mesh appropriately. I did a vaginal exam the bedside. I assured prolapse reduction without undue tension. I then sewed the proximal leaflet of mesh onto the anterior longitudinal ligament of the sacrum with 3 sutures of 2 0 [place]-Damian. I then used a 2 0 Monocryl to completely and meticulously retroperitonealized all mesh. I allowed the colon to go back to its normal anatomic location. There is no sign of any impingement. The specimen was then removed. All ports removed. Fascia was tied down. Additional 2 sutures were placed fully close the fascia. Skin was closed with Monocryl and surgical glue. She was repositioned and prepped for urethral sling. I marked out the inner thigh incisions. I anesthetized the skin and made the incisions. I then anesthetized the anterior vaginal wall at the mid urethra. I made a 1 cm incision. I dissected out laterally taking great care not to injure the refilled vaginal wall. I passed the helical trocars. I did this 1st on the left and then on the right. This was done from the thigh incision towards the vaginal incision. Sling was connected to the trocars and brought out the thigh incision. I tensioned the sling appropriately. I cut and the plastic sheaths. I closed the incision with 2 0 Vicryl. I then performed cystoscopy. There was no tumors or surgical artifact. Both ureters were seen to excrete clear yellow urine. There is no surgical artifact in the bladder or urethra. I cut the excess sling material. Close incision with glue. She was awakened and transferred to PACU in stable condition. Implants Sacral colpopexy mesh Urethral sling Estimated Blood Loss 20 Packing No Pathology None sent Complications No immediate complications Condition Stable Disposition PACU
[2024-12-13] MEDS: DICLOFENAC SODIUM 0.1% OPHTH SOLN 2.5 ML BOTTLE 1 DROP EACH EYE ×2 (11:15→22:00)
[2024-12-13] MEDS: PROPARACAINE HCL 0.5% 15 ML OPHTH SOLN 1 DROP EACH EYE (11:20)
--- NOTE | 2024-12-13 11:40 | ADMGEN ---
This patient, Dee Thomas, was admitted to OB 2nd Floor Room 289-00. Patient/family oriented to hospital policies and general routines including ID bracelet, bed and alarms, visiting hours, pain management, procedures, bathroom and other care routines, personal items, smoking policy, room service/diet, and visiting hours. Information on how to activate the Rapid Response Team has been discussed. Patient/Family are encouraged to report perceived risks to care and to ask questions if they do not understand what they are told or what they should do.
[2024-12-13] MEDS: KCL 20 MEQ/D5/0.45% SOD CHL 1,000 ML 100 ML IV CONT ×2 (12:19→21:59)
[2024-12-13] MEDS: ONDANSETRON INJ 4 MG/2 ML VIAL IV PUSH (12:20)
[2024-12-13] MEDS: ceFAZolin 1 GM in SODIUM CHLORIDE 0.9% IV 50 ML 100 ML IVPB ×2 (15:02→23:05)
[2024-12-13] MEDS: HYDROcodone/acetaminophen (*CRX) 5-325 MG TABLET 1 TAB PO (15:05)
[2024-12-13] MEDS: SIMVASTATIN 10 MG TABLET BY MOUTH (21:15)
[2024-12-14] MEDS: ACETAMINOPHEN 325 MG TABLET 650 MG PO (01:14)
[2024-12-14 04:30] VITALS: BP 109/52; PULSE 71; RESP 16; TEMP 36.6; O2SAT 97
[2024-12-14] MEDS: LEVOTHYROXINE SODIUM 75 MCG TABLET BY MOUTH (06:34)
[2024-12-14] MEDS: metroNIDAZOLE 500 MG/ISO 100ML 500 MG/100 ML BAG 100 MG IVPB (06:34)
[2024-12-14] MEDS: DICLOFENAC SODIUM 0.1% OPHTH SOLN 2.5 ML BOTTLE 1 DROP EACH EYE (06:38)
--- NOTE | 2024-12-14 07:22 | P.PNOB_ITS ---
STILL RUNNER - A/P Assessment and plan (1) S/P laparoscopic supracervical hysterectomy: Code(s): Z90.711 - Acquired absence of uterus with remaining cervical stump Status: Acute (2) S/P BSO (bilateral salpingo-oophorectomy): Code(s): Z90.722 - Acquired absence of ovaries, bilateral; Z90.79 - Acquired absence of other genital organ(s) Status: Acute Postoperative Procedures: Procedures Operation Date: 12/13/24 07:30 Actual Procedure Side Surgeon p Robotic Sacrocolpopexy, Urethral Sling Jem Rios MD s Robotic Supracervical Hysterectomy with Bilateral Salpingectomy Keya Og MD Postoperative day: 1 Postoperative status: doing well Postoperative plan: routine post-op care and discharge Time Spent With Patient Time: Total time spent is greater than 50% in coordination of care (as documented) at patient's floor/unit and/or counseling patient: Time with patient: less than 15 minutes STILL RUNNER- PN:Subj Post-Op Subjective Date/time seen: 12/14/24 07:22 Interval history: POD#1 Sandee reports doing well today. No issues overnight. Her pain is controlled with PO meds. She has tolerated regular diet. She denies any vaginal bleeding. She has voided. She has passed flatus. She has ambulated and denies any symptoms of anemia. Review of Systems Review of Systems: All systems reviewed & are unremarkable except as noted in HPI and below (HPI) Constitutional: Constitutional: Denies chills, Denies fever(s) and Denies headache(s) Eyes: Eyes: Denies change in vision ENT: Denies dizziness and Denies headache(s) Cardiovascular: Cardiovascular: Denies chest pain and Denies rapid heart rate Respiratory: Respiratory: Denies cough Genitourinary: Genitourinary: Denies abnormal vaginal bleeding Neurologic: Denies dizziness and Denies headache(s) Exam Const: General: cooperative, healthy appearing, comfortable and no acute di stress Orientation/consciousness: patient oriented x3 Resp: Effort & Inspection: normal respiratory effort Auscultation: clear to auscultation bilaterally Cardio: Rate: regular rate GI: Inspection: normal to inspection and incision ( LSC incisions c/d/i) GI Palp: Yes abdominal tenderness (appropriate) and Yes Soft to palpation Auscultation: normal bowel sounds : Other: normal bleeding on pad Skin: General skin exam: normal color Neuro: General: patient oriented x3 Psych: Appearance: grossly normal Affect: normal affect Attitude: cooperative STILL RUNNER - PN: Obj Data Vital Signs Vital Signs: Vital Signs - 24 hr 12/13/24 10:15 12/13/24 10:30 12/13/24 10:45 Temperature 96.7 F L 96.5 F L 96.8 F L Pulse Rate 65 69 66 Respiratory Rate 16 14 14 Blood Pressure 118/59 L 105/58 L 123/67 Pulse Oximetry 100 100 98 Oxygen Delivery Simple Face Mask Simple Face Mask Simple Face Mask Oxygen Flow Rate 8 8 8 12/13/24 10:50 12/13/24 11:00 12/13/24 11:15 Temperature 96.8 F L 96.8 F L Pulse Rate 60 59 L Respiratory Rate 14 14 Blood Pressure 121/59 L 117/63 Pulse Oximetry 95 99 Oxygen Delivery Room Air Room Air Nasal Cannula Oxygen Flow Rate 2 12/13/24 11:29 12/13/24 11:45 12/13/24 11:50 Temperature 96.9 F L 97.6 F Pulse Rate 60 55 L Respiratory Rate 14 18 Blood Pressure 121/65 118/68 Pulse Oximetry 97 97 97 Oxygen Delivery Nasal Cannula Nasal Cannula Oxygen Flow Rate 2 2 12/13/24 16:00 12/13/24 16:00 12/13/24 20:00 Temperature 97.7 F 97.4 F L Pulse Rate 69 68 Respiratory Rate 16 16 Blood Pressure 124/63 131/60 Pulse Oximetry 99 97 Oxygen Delivery Room Air Oxygen Flow Rate 12/13/24 23:57 12/14/24 04:30 Temperature 98.0 F 98 F Pulse Rate 84 71 Respiratory Rate 14 16 Blood Pressure 112/44 L 109/52 L Pulse Oximetry 95 97 Oxygen Delivery Oxygen Flow Rate Intake/Output Intake/Output: Intake & Output 12/11/24 12/12/24 12/13/24 12/14/24 23:59 23:59 23:59 23:59 Intake Total 1666.7 Output Total 1200 350 Balance 466.7 -350 Meds/Results Medications: Active Medications Generic Name Dose Route Start Last Admin Trade Name Freq PRN Reason Stop Dose Admin Acetaminophen 650 mg 12/13/24 07:27 12/14/24 01:14 Acetaminophen 325 Mg Tablet PO 650 mg Q4H PRN Administration Mild Pain (1-3) or Fever Hydrocodone Bitart/Acetaminophen 1 tab 12/13/24 07:27 12/13/24 15:05 Hydrocodone/Acetaminophen (*Crx) 5-325 Mg Tablet PO 1 tab Q4H PRN Administration Pain Rated 4-5 Artificial Tears 1 drop 12/13/24 11:09 Artificial Tears Ophth Soln 15 Ml Bottle EACH EYE Q2H PRN Dry Eye(s) Cephalexin HCl 500 mg 12/14/24 13:00 Cephalexin 500 Mg Capsule PO QID HIMANSHU Diclofenac Sodium 1 drop 12/13/24 14:00 12/14/24 06:38 Diclofenac Sodium 0.1% Ophth Soln 2.5 Ml Bottle EACH EYE 12/17/24 13:59 1 drop Q8HR HIMANSHU Administration Diphenhydramine HCl 25 mg 12/13/24 07:27 Diphenhydramine Hcl Inj 50 Mg/Ml Vial IV PUSH Q6H PRN Itching Docusate Sodium 100 mg 12/13/24 09:00 12/13/24 15:06 Docusate Sodium 100 Mg Capsule PO Not Given DAILY [facility] Enoxaparin Sodium 30 mg 12/14/24 09:00 Enoxaparin 30 Mg/0.3 Ml Syringe SUB-Q DAILY [facility] Hydrochlorothiazide 12.5 mg 12/13/24 21:00 12/13/24 21:15 Hydrochlorothiazide 12.5 Mg Capsule PO 12.5 mg QHS HIMANSHU Administration Potassium Chloride/Dextrose/Sod Cl 1,000 mls @ 100 mls/hr 12/13/24 07:30 12/13/24 21:59 Kcl 20 Meq/D5/0.45% Sod Chl IV CONT 100 mls/hr .Q10H HIMANSHU Administration Cefazolin Sodium 1 gm/ Sodium 50 mls @ 100 mls/hr 12/13/24 15:00 12/13/24 23:05 Chloride IVPB 12/14/24 07:29 100 mls/hr Q8H HIMANSHU Administration Metronidazole 500 mg in 100 mls @ 100 mls/hr 12/13/24 14:00 12/14/24 06:34 Flagyl 500 Mg/Iso Soln 100 Ml IVPB 100 mls/hr Q8HR HIMANSHU Administration Ketorolac Tromethamine 15 mg 12/13/24 07:27 Ketorolac 15 Mg/Ml Vial (*Bkc) IV PUSH Q8H PRN Pain Rated 5 or Less Levothyroxine Sodium 75 mcg 12/14/24 06:30 12/14/24 06:34 Levothyroxine Sodium 75 Mcg Tablet BY MOUTH 75 mcg DAILY@0630 HIMANSHU Administration Lisinopril 10 mg 12/13/24 21:00 12/13/24 21:15 Lisinopril 10 Mg Tablet PO 10 mg QHS HIMANSHU Administration Morphine Sulfate 2 mg 12/13/24 07:27 Morphine Sulfate (*Crx) 2 Mg/Ml Inj IV PUSH Q2H PRN Pain Rated 6 or Greater Ondansetron HCl 4 mg 12/13/24 07:27 12/13/24 12:20 Ondansetron Inj 4 Mg/2 Ml Vial IV PUSH 4 mg Q6H PRN Administration Nausea And Vomiting Pantoprazole Sodium 20 mg 12/13/24 09:00 12/13/24 15:06 Pantoprazole Sod Sesquihydrate 20 Mg Tab PO Not Given QAM [facility] Simvastatin 10 mg 12/13/24 21:00 12/13/24 21:15 Simvastatin 10 Mg Tablet BY MOUTH 10 mg QHS HIMANSHU Administration Zolpidem Tartrate 5 mg 12/13/24 07:27 Zolpidem Tartrate (*Crx) 5 Mg Tablet PO HS PRN Insomnia
[2024-12-14 07:50] VITALS: BP 109/44; PULSE 78; RESP 16; TEMP 37.3; O2SAT 100
--- NOTE | 2024-12-14 08:43 | WPDANESPN ---
Anes - Prog Note Post-Op Date/Time: 12/14/24 08:43 Cardiovascular status: normal Respiratory status: normal Airway patency: baseline Mental status: baseline Post-Op hydration status: normal Vital Signs: Last Vital Signs Temp 37.3 C 12/14/24 07:50 Pulse 78 12/14/24 07:50 Resp 16 12/14/24 07:50 BP 109/44 L 12/14/24 07:50 Pulse Ox 100 12/14/24 07:50 O2 Del Method Room Air 12/13/24 16:00 O2 Flow Rate 2 12/13/24 11:50 Pain Score (VAS): 1 I/O: Intake & Output 12/13/24 12/14/24 12/14/24 23:59 07:59 15:59 Intake Total 1366.7 Output Total 1200 550 Balance 166.7 -550 Post-procedural complaints: none Patient Feedback: Patient satisfied with anesthetic care.
== END 2024-12-14 07:23 | disposition home or self-care (01) ==
LOC: ANHSURGERY 07:31 → ANHOB2 12-14 07:23 → ANH2MED 12-15 07:47
PROVIDERS: Obstetrics & Gynecology; PCP Family Medicine; Visit Provider Urology
PROC: (CPT 57425; principal; 2024-12-13 07:30)
PROC: (CPT 58542; 2024-12-13 07:30)
DX: N81.2 Incomplete uterovaginal prolapse (principal); N39.3 Stress incontinence (female) (male); N84.0 Polyp of corpus uteri; N83.8 Other noninflammatory disorders of ovary, fallopian tube and broad ligament; D27.1 Benign neoplasm of left ovary; N73.6 Female pelvic peritoneal adhesions (postinfective); E03.9 Hypothyroidism, unspecified; I10 Essential (primary) hypertension; M16.12 Unilateral primary osteoarthritis, left hip; K21.9 Gastro-esophageal reflux disease without esophagitis; M41.9 Scoliosis, unspecified; Z98.890 Other specified postprocedural states; Z98.51 Tubal ligation status; Z80.1 Family history of malignant neoplasm of trachea, bronchus and lung; Z82.49 Family history of ischemic heart disease and other diseases of the circulatory system
CPT/HCPCS: 58542; 57425; 57288; S2900 ×2; 88307; J0690; A9270; C1771; C1781; J1100; J1171; J1836; J1885; J2003; J2250; J2405; J2704; J3010; J3480; J7030; J7120

== ENCOUNTER 2025-02-10 13:27 | Outpatient (CLI) | payer OTHER, SELFPAY ==
--- NOTE | ~2025-02-10 | MM_ITS ---
EXAMINATION: MM screening yasmeen BI w oliverio HISTORY: Screening TECHNIQUE: Craniocaudal and mediolateral oblique 3-D tomosynthesis images were obtained and synthetic 2-D images were generated. CAD analysis was submitted and interpreted. COMPARISON: 05/30/2022 BREAST PARENCHYMAL COMPOSITION: There are scattered areas of fibroglandular density. FINDINGS: There is no evidence of suspicious mass, calcification, or architectural distortion to suggest malignancy. There has been no suspicious interval change. IMPRESSION: 1. No mammographic evidence of malignancy. Recommend routine screening mammography in one year. BI-RADS Category 2: Benign finding(s) Reviewed, dictated and finalized at location Q. IMPRESSION: 1. No mammographic evidence of malignancy. Recommend routine screening mammogra phy in one year. BI-RADS Category 2: Benign finding(s)
== END 2025-02-10 13:28 | disposition home or self-care (01) ==
LOC: MICIMG 13:29
PROVIDERS: PCP Family Medicine; Visit Provider Nurse Practitioner
DX: Z12.31 Encounter for screening mammogram for malignant neoplasm of breast (principal)
CPT/HCPCS: 77063; 77067

== ENCOUNTER 2025-03-07 08:14 | Outpatient (CLI) | payer OTHER, SELFPAY ==
--- NOTE | ~2025-03-07 | US_ITS ---
ULTRASOUND ABDOMEN LIMITED (RIGHT UPPER QUADRANT) Clinical History: R19.7 - Diarrhea, unspecified Comparison: None Technique: Right upper quadrant sonography Findings: Liver: Normal size. Normal echotexture. No intrahepatic biliary ductal dilatation. Normal hepatopedal flow main portal vein. Common Duct: Normal caliber. 4 mm. Gallbladder: No stones. No wall thickening. No pericholecystic fluid. Pancreas: Unremarkable. IMPRESSION: 1. No acute findings. Reviewed, dictated and finalized at location R. IMPRESSION: 1. No acute findings.
== END 2025-03-07 08:15 | disposition home or self-care (01) ==
LOC: MICIMG 08:14
PROVIDERS: PCP Family Medicine; Visit Provider Family Medicine
DX: R19.7 Diarrhea, unspecified (principal)
CPT/HCPCS: 76705